=== PATIENT | female | born 1945 | race Caucasian/White ===

== ENCOUNTER → 2018-06-01 | Day surgery (SDC) | payer MEDICARE ==
[2018-05-28 11:53] VITALS: BMI 25.3
[~2018-06-01] MED LIST: Fentanyl 100 MCG/2 ML VIAL ONE; Gadobenate Dimeglumine 529 MG/1 ML (20ML VIAL) ONE; Midazolam HCl 2 mg/2 ml Vial ONE
--- NOTE | 2018-06-01 12:52 | RAD ---
LUMBAR SPINE TWO VIEWS: INDICATIONS: History of stenosis. FINDINGS: There is severe multilevel disk degenerative and facet osteoarthritic change. There is diffuse osteo penia. There is levoscoliosis at the L3-L4 level. There is slight retrolisthesis of L1-L2. There i s a wedge compression abnormality of T12. This is new from a comparison abdominal radiograph dated 0 12/28/2014. There is a left total hip replacement. There is moderate degenerative change of both SI joints. IMPRESSION: 1. Moderate to severe multilevel spondylosis of the lumbar spine. 2. Interval T12 wedge compression abnormality of undetermined chronicity. MR or bone scan may be he lpful to document acuity. 3. Slight retrolisthesis of L2 on L3. 4. Worsening degenerative levoscoliosis of the lumbar spine, centered at L3-L4. POS: [facility]
--- NOTE | 2018-06-01 15:10 | MRI ---
MRI CERVICAL SPINE WITHOUT CONTRAST: HISTORY: Pain. COMPARISON: None. TECHNIQUE: MRI cervical spine is performed without intravenous Gadolinium administration. Multisequential, mult iplanar imaging is performed. FINDINGS: Appropriate T1 marrow signal intensity of the cervical vertebrae. Vertebral body height is maintaine d. NO fracture. No significant STIR hyperintensity to suggest edema or ligamentous injury. The visualized brain parenchyma, cervicomedullary junction, cervical cord and the upper thoracic cord have a normal size and signal intensity. C2-C3: No significant disk-osteophyte complex. No significant central canal stenosis or neural fora bassam narrowing. C3-C4: Broad-based disk-osteophyte complex abuts the thecal sac. Mild central canal stenosis. Dege nerative change in the bilateral uncovertebral joints results in moderate bilateral foraminal narrowi ng. C4-C5: There is a broad-based disk-osteophyte complex. Ventral subarachnoid space is effaced. Ther e is some deformity of the cord with at least moderate central canal stenosis. No T2 hyperintensity of the cord. Degenerative change of bilateral uncovertebral joints and left facet hypertrophy are pr esent. Moderate bilateral foraminal narrowing. C5-C6: Broad-based disk-osteophyte complex abuts the thecal sac. There is a right paracentral compo nent. The ventral CSF signal intensity is effaced. Moderate central canal stenosis. No T2 hyperint ensity of the cord. There appears to be at least moderate to severe right and moderate left foramina l narrowing. C6-C7: Broad-based disk-osteophyte complex abuts the thecal sac. Mild central canal stenosis. Righ t neural foramen is patent. Mild left foraminal narrowing. C7-T1: No significant central canal stenosis or foraminal narrowing. IMPRESSION: Degenerative change of the cervical spine as above. POS: [facility]
--- NOTE | 2018-06-01 15:19 | MRI ---
MRI OF THE RIGHT SHOULDER WITHOUT CONTRAST: INDICATION: Right shoulder pain. FINDINGS: There is moderate fluid in the subacromial subdeltoid bursa. There is moderate tendinosis of the sup raspinatus and infraspinatus. There is prominent degenerative subchondral cyst-like abnormality invo lving the superior humeral head and lateral acromial process. There is moderate to severe glenohumer al osteoarthrosis with degenerative fraying of the glenoid labrum. There is mild to moderate AC join t osteoarthrosis. No muscular atrophy is evident. There is a partial thickness split tear of the lo ng head of the biceps tendon. The intraarticular course of the biceps tendon is not well seen and ma y be completely disrupted. The tendon is demonstrated at the level of the bicipital tunnel on image 7 of series 2. IMPRESSION: 1. Moderate to severe glenohumeral osteoarthrosis. 2. Nonvisualization of the intraarticular course of the long head of the biceps tendon suspicious fo r complete long head biceps tendon disruption with retraction to the level of the bicipital groove. There is a partial thickness split tear seen involving the proximal aspect of the visualized long hea d of the biceps tendon. 3. Moderate tendinosis of the supraspinatus and infraspinatus. 4. Moderate fluid in the subacromial, subdeltoid bursa may reflect a bursitis. 5. There is degenerative subchondral cyst-like abnormalities along the superior humeral head and acr omial spine reflect sequelae of mechanical impingement. POS: [facility]
--- NOTE | 2018-06-01 15:22 | MRI ---
MRI OF THE LEFT SHOULDER WITHOUT CONTRAST: INDICATION: Left shoulder pain. FINDINGS: There is severe osteoarthrosis involving the glenohumeral joint with prominent degenerative fraying o f the glenoid labrum. There is nonvisualization of the intraarticular biceps tendon consistent with complete disruption and distal retraction. There is moderate tendinosis of the supraspinatus and inf raspinatus. There is moderate tendinosis of the subscapularis. There is mild fluid in the subacromi al subdeltoid bursa. There are some degenerative subchondral cyst-like abnormalities involving the g reater tuberosity as well as the lateral aspect of the acromion which can be seen with mechanical imp ingement. There is no muscular atrophy. There is a suspected intraarticular body within the axillar y recess measuring 9 mm in size. There is moderate AC joint osteoarthrosis. IMPRESSION: 1. Severe osteoarthrosis of the left glenohumeral joint with intraarticular body. 2. Prominent tendinosis of the supraspinatus and infraspinatus with moderate tendinosis of the scapu janine. 3. Complete disruption of the long head of the biceps tendon with distal retraction. 4. Subchondral cyst-like abnormalities involving the lateral acromion and superior humeral head may reflect sequelae of impingement. 5. Moderate acromioclavicular joint osteoarthrosis. POS: [facility]
--- NOTE | 2018-06-01 16:55 | MRI ---
LUMBAR SPINE MRI WITH AND WITHOUT CONTRAST: 06/01/18 COMPARISON: 05/10/12 HISTORY: Lumbar spinal stenosis. TECHNIQUE: MRI of the lumbar spine is performed with and without intravenous gadolinium administration. Multiseq uential, multiplanar imaging is performed. FINDINGS: There is heterogeneous marrow signal intensity involving the T11 and T12 vertebral bodies. There is a ssociated edema suggesting type I/II Modic changes at the inferior end plate of T11. There appears to be a compression fracture at T12 with associated edema. The postcontrast images demonstrate associat ed enhancement. There is retropulsion of T12 secondary to fracture. There is intrinsic T1 and T2 rosalie ow signal hypointensity involving the L3 and L4 level without associated edema suggesting type II Mod ic change. There is appropriate signal intensity in the visualized psoas muscles and solid organs. Conus medulla ris terminates at the L1 level. In the right hemipelvis, there is an incompletely evaluated T2 hyperi ntense lesion. Postcontrast images do not demonstrate any abnormal enhancement within the thecal sac including the c auda equina and conus medullaris. There appears to be prominence of the intra and extrahepatic biliary system, incompletely evaluated. T11-T12: No significant central canal stenosis. T12 vertebral body: Moderate central canal stenosis due to retropulsion. T12-L1: No high grade central canal stenosis. L1-L2: No high grade central canal stenosis. Right neural foramen is patent. Moderate left foraminal narrowing. L2-L3: Moderate loss of disc space height. Nevertheless, no significant central canal stenosis. Neura l foramina are patent. Postsurgical changes are noted in the posterior elements. No significant abnor mal enhancement. L3-L4: Moderate to severe loss of disc space height. There is intrinsic fluid signal intensity in the disc space. No associated end plate irregularity. No significant enhancement. Fluid is nonspecific. Posterior decompression changes are noted. No significant central canal stenosis. Moderate to severe right and mild left neural foraminal narrowing. There is no enhancement of the disc space. L4-L5: Essential near complete fusion of the disc space. Posterior decompression changes are noted. N o significant central canal stenosis. Moderate right and mild left foraminal narrowing. L5-S1: Small amount of fluid signal intensity in the disc space. No end plate irregularity. No signif icant central canal stenosis. Mild to moderate bilateral foraminal narrowing. IMPRESSION: 1. Postsurgical changes of lumbar spine as above. Varying degrees of central canal stenosis and foraminal narrowing as above. 2. Fluid signal intensity in the L3-L4 and L5-S1 disc space is nonspecific. No associated enhanc ement. 3. Compression fracture at T12 with retropulsion. There is mild to moderate loss of vertebral baylee dy height. Compression fracture is new when compared to the previous exam. 4. Prominent intra and extrahepatic biliary system, incompletely evaluated. Consider MRCP or ERCP. Code T POS: [facility]
== END ==
LOC: SDC/OP 10:51 → EDSTATUS 12:00
PROVIDERS: ATTEND Neurological Surgery
DX: M48.061 Spinal stenosis, lumbar region without neurogenic claudication (principal); M48.02 Spinal stenosis, cervical region; M54.2 Cervicalgia; M19.011 Primary osteoarthritis, right shoulder; M19.012 Primary osteoarthritis, left shoulder; F31.9 Bipolar disorder, unspecified; G89.29 Other chronic pain; M54.5 Low back pain; M25.552 Pain in left hip; Z87.891 Personal history of nicotine dependence; Z86.73 Personal history of transient ischemic attack (TIA), and cerebral infarction without residual deficits; Z98.1 Arthrodesis status; Z79.891 Long term (current) use of opiate analgesic; Z79.899 Other long term (current) drug therapy
CPT/HCPCS: 72100; 72141; 72158; 82565; A9579; J2250; J3010

== ENCOUNTER 2022-02-04 12:52 | Outpatient (CLI) | payer MEDICARE | END 2022-02-04 12:53 | disposition home or self-care (01) | LOC: BICMAMMO 12:52 | PROVIDERS: ATTEND Internal Medicine | DX: N64.4 Mastodynia (principal); N63.21 Unspecified lump in the left breast, upper outer quadrant | CPT/HCPCS: 76642; 77066; G0279 ==

== ENCOUNTER 2022-02-26 08:21 | Emergency (ER) | payer MEDICARE ==
[2022-02-26] MEDS ORDERED: Fentanyl 100 MCG/2 ML VIAL ONE ×2 (09:00→11:33)
[2022-02-26 09:09] LABS: #Lymphocytes 1.2 thou/uL (1.20-3.40); #Monocytes 0.1 thou/uL (0.11-0.59); #Neutrophils 5.3 thou/uL (1.40-6.50); %Basophils 0.1 % (0.0-1.0); %Eosinophils 0.7 % (0.0-10.0); %Lymphocytes 17.5 % (21.0-51.0); %Monocytes 1.7 % (0.0-10.0); Hemoglobin 12.4 g/dL (12.0-16.0); Mean Corpuscular HGB CONC 30.7 g/dL (32.0-36.0); Mean Corpuscular Volume 94.3 fL (78.0-98.0); Mean Platelet Volume 6.7 fL (7.4-10.4); Platelet Count 276 thou/uL (130-400); RBC Distribution Width 14.4 % (11.5-14.5); Red Blood Cell (RBC) Count 4.28 mill/uL (4.20-5.40); White Blood Cell (WBC) Count 6.6 thou/uL (4.8-10.8)
[2022-02-26 09:28] LABS: ALT (SGPT) 17 U/L (8-55); AST (SGOT) 22 U/L (5-34); Albumin 4.4 g/dL (3.4-4.8); Alkaline Phosphatase 96 U/L (40-110); Anion Gap 12 mmol/L (10-20); BUN (Urea Nitrogen) 8 mg/dL (9.8-20.1); Bilirubin, Total 1.2 mg/dL (0.2-1.2); Calc. Creatinine Clearance 0 mL/min (70-130); Calcium 9.7 mg/dL (7.8-10.44); Carbon Dioxide 31 mmol/L (23-31); Chloride 98 mmol/L (98-107); Globulin 3.6 g/dL (2.4-3.5); Glucose 97 mg/dL (83-110); Potassium 3.9 mmol/L (3.5-5.1); Sodium 137 mmol/L (136-145)
[2022-02-26 11:09] LABS: Bacteria/HPF None Seen HPF (None Seen); Bilirubin Negative (Negative); Blood, Urine 3+ (Negative); Clarity Clear (Clear); Glucose, Urine (Dipstick) Normal (Negative); Ketone, Urine Negative (Negative); Leukocyte Negative Leu/uL (Negative); Nitrite Negative (Negative); Protein, Urine (Dipstick) Negative (Neg-Trace); Specific Gravity, Urine 1.015 (1.002-1.036); Squamous Epithelial 0-3 HPF (0-3); Urobilinogen Normal mg/dL (Less than 2); WBC/HPF 0-3 HPF (0-3)
== END 2022-02-26 12:01 | disposition home or self-care (01) ==
LOC: ERS 08:21
DX: S06.9X9A Unspecified intracranial injury with loss of consciousness of unspecified duration, initial encounter (principal); M25.561 Pain in right knee; M25.562 Pain in left knee; R31.9 Hematuria, unspecified; W19.XXXA Unspecified fall, initial encounter; Y93.01 Activity, walking, marching and hiking; Z85.3 Personal history of malignant neoplasm of breast
CPT/HCPCS: 36415; 70450; 72125; 72170; 80053; 81003; 81015; 85025; 93005; 96374; 96376; J3010

== ENCOUNTER 2022-02-26 21:40 | Inpatient (IN) | payer MEDICARE ==
[2022-02-27] MEDS ORDERED: Morphine 4 MG/ML VIAL ONE (01:02)
[2022-02-27] MEDS ORDERED: Ondansetron ODT 4 MG TAB PO PRN (03:05)
[2022-02-27] MEDS ORDERED: Morphine 4 MG/ML VIAL SLOW IVP PRN ×2 (03:05→07:32)
[2022-02-27] MEDS ORDERED: Dextrose 5% in Water 1,000 ML IV PRN (03:05)
[2022-02-27] MEDS ORDERED: Morphine 2 MG/ML VIAL SLOW IVP PRN (03:05)
[2022-02-27] MEDS ORDERED: hydrALAZINE 20 MG/ML VIAL SLOW IVP PRN (03:05)
[2022-02-27] MEDS ORDERED: Ondansetron PF 4 MG/2 ML Vial IVP PRN (03:05)
[2022-02-27] MEDS ORDERED: Dextrose 50% Abboject 50 ML SYRINGE SLOW IVP PRN (03:05)
[2022-02-27] MEDS ORDERED: traMADol HCl 50 MG TAB PO PRN ×3 (03:09→07:32)
[2022-02-27] MEDS ORDERED: Sodium Chloride 0.9% 1,000 ML IV SCH (03:15)
[2022-02-27] MEDS ORDERED: HYDROcodone/Acetaminophen 5/325 mg Tablet ONE (03:25)
[2022-02-27 04:02] LABS: #Eosinphils 0.1 thou/uL (0.0-0.7); #Lymphocytes 1.2 thou/uL (1.20-3.40); #Monocytes 0.2 thou/uL (0.11-0.59); #Neutrophils 6.7 thou/uL (1.40-6.50); %Basophils 0.2 % (0.0-1.0); %Lymphocytes 14.2 % (21.0-51.0); %Monocytes 2.7 % (0.0-10.0); %Neutrophils 81.8 % (42.0-75.0); Hemoglobin 12.5 g/dL (12.0-16.0); Mean Corpuscular HGB CONC 32.9 g/dL (32.0-36.0); Mean Corpuscular Hemoglobin 29.5 pg (27.0-31.0); Mean Corpuscular Volume 89.5 fL (78.0-98.0); Mean Platelet Volume 6.9 fL (7.4-10.4); Platelet Count 250 thou/uL (130-400); RBC Distribution Width 14.7 % (11.5-14.5); Red Blood Cell (RBC) Count 4.24 mill/uL (4.20-5.40); White Blood Cell (WBC) Count 8.2 thou/uL (4.8-10.8)
[2022-02-27 04:16] LABS: Anion Gap 16 mmol/L (10-20); BUN (Urea Nitrogen) 12 mg/dL (9.8-20.1); Calc. Creatinine Clearance 0 mL/min (70-130); Calcium 9.5 mg/dL (7.8-10.44); Carbon Dioxide 26 mmol/L (23-31); Chloride 96 mmol/L (98-107); Glucose 105 mg/dL (83-110); Magnesium 1.9 mg/dL (1.6-2.6); Potassium 3.6 mmol/L (3.5-5.1); Sodium 134 mmol/L (136-145)
[2022-02-27] MEDS: Ketorolac Tromethamine 30 MG/ML VIAL IVP SCH ×5 (05:07→21:47)
[2022-02-27] MEDS: Acetaminophen 500 MG TAB PO SCH ×5 (05:07→21:47)
[2022-02-27 05:38] VITALS: BMI 27.1
[2022-02-27] MEDS ORDERED: ceFAZolin 2 GM/Dextrose 50 ML 2 GM in Premix Bag 1 BAG IVPB SCH (07:45)
[2022-02-27] MEDS ORDERED: CEFAZOLIN 2 GM in Sodium Chloride 0.9% 100 ML IVPB SCH (08:00)
[2022-02-27 08:27] LABS: SARS-CoV-2 NAA Rapid Test Not Detected (NotDetected)
[2022-02-27] MEDS: Citalopram 20 MG TAB PO SCH (08:59)
[2022-02-27] MEDS: Senokot S 8.6-50 MG TAB PO SCH ×2 (09:00→20:30)
[2022-02-27] MEDS: Polyethylene Glycol 3350 17 GM Packet PO SCH (09:00)
[2022-02-27] MEDS: Famotidine/PF 20 mg/2ml Vial SLOW IVP SCH ×2 (09:00→20:30)
[2022-02-27] MEDS ORDERED: fentaNYL Citrate/PF 100 MCG/2 ML SYRINGE ONE (15:00)
[2022-02-27] MEDS ORDERED: CEFAZOLIN 2 GM VIAL ONE (15:29)
[2022-02-27] MEDS ORDERED: Sodium Chloride 0.9% 100 ML ONE (15:29)
[2022-02-27] MEDS ORDERED: Lidocaine 1% PF 5 ML VIAL ONE (15:41)
[2022-02-27] MEDS ORDERED: Ondansetron PF 4 MG/2 ML Vial ONE (15:41)
[2022-02-27] MEDS ORDERED: PROPOFOL 200 MG/20 ML VIAL ONE (15:41)
[2022-02-27] MEDS ORDERED: PHENYLEPHRINE-NS 100 MCG/ML 10 ML SYRINGE ONE ×2 (15:41→16:55)
[2022-02-27] MEDS ORDERED: Dexamethasone 20 MG/5 ML VIAL ONE (15:41)
[2022-02-27] MEDS ORDERED: Rocuronium Bromide 10 MG/ML (10ML VIAL) ONE (15:41)
[2022-02-27] MEDS ORDERED: SUGAMMADEX SODIUM 200 MG/2 ML VIAL ONE (17:11)
[2022-02-27] MEDS ORDERED: Promethazine HCl 25 MG/ML VIAL IVPB PRN (17:56)
[2022-02-27] MEDS ORDERED: Promethazine HCl 25 MG/ML VIAL IM PRN (17:56)
[2022-02-27] MEDS ORDERED: Ondansetron HCl/PF 4 MG/2 ML Vial IVP PRN (17:56)
[2022-02-27] MEDS ORDERED: Meperidine HCl/PF 25 MG/ML VIAL SLOW IVP PRN (17:56)
[2022-02-27] MEDS ORDERED: Fentanyl 100 MCG/2 ML VIAL ONE (18:29)
[2022-02-27] MEDS: CEFAZOLIN 2 GM in Sodium Chloride 0.9% 100 ML IVPB SCH ×2 (19:25→23:43)
[2022-02-27] MEDS ORDERED: Acetaminophen/Codeine 30-300mg Tablet PO PRN (19:45)
[2022-02-27] MEDS: Donepezil HCl 5 MG TAB PO SCH ×2 (20:33→21:47)
[2022-02-28] MEDS: Acetaminophen 500 MG TAB PO SCH ×4 (04:32→23:25)
[2022-02-28] MEDS: Ketorolac Tromethamine 30 MG/ML VIAL IVP SCH ×4 (04:42→20:26)
[2022-02-28 08:04] LABS: #Eosinphils 0.1 thou/uL (0.0-0.7); #Lymphocytes 1.1 thou/uL (1.20-3.40); #Monocytes 0.4 thou/uL (0.11-0.59); #Neutrophils 7.4 thou/uL (1.40-6.50); %Eosinophils 0.6 % (0.0-10.0); %Lymphocytes 11.9 % (21.0-51.0); %Monocytes 4.7 % (0.0-10.0); %Neutrophils 82.8 % (42.0-75.0); Mean Corpuscular HGB CONC 32.5 g/dL (32.0-36.0); Mean Corpuscular Hemoglobin 30.3 pg (27.0-31.0); Mean Corpuscular Volume 93.1 fL (78.0-98.0); Mean Platelet Volume 7.2 fL (7.4-10.4); Platelet Count 211 thou/uL (130-400); RBC Distribution Width 14.4 % (11.5-14.5); Red Blood Cell (RBC) Count 3.29 mill/uL (4.20-5.40); White Blood Cell (WBC) Count 8.9 thou/uL (4.8-10.8)
[2022-02-28 08:26] LABS: Anion Gap 16 mmol/L (10-20); BUN (Urea Nitrogen) 11 mg/dL (9.8-20.1); Calc. Creatinine Clearance 85 mL/min (70-130); Calcium 8.5 mg/dL (7.8-10.44); Carbon Dioxide 24 mmol/L (23-31); Chloride 98 mmol/L (98-107); Glucose 90 mg/dL (83-110); Magnesium 1.7 mg/dL (1.6-2.6); Potassium 3.9 mmol/L (3.5-5.1); Sodium 134 mmol/L (136-145)
[2022-02-28 08:29] LABS: Phosphorus 3.1 mg/dL (2.3-4.7)
[2022-02-28] MEDS ORDERED: Ziprasidone 20 MG VIAL IM SCH ×2 (08:45→09:45)
[2022-02-28] MEDS ORDERED: Non-Formulary Item 1 EACH (Gabapentin [Gabapentin] 600 MG Tablet) PO SCH (09:00)
[2022-02-28] MEDS ORDERED: Magnesium 2 GM/50 ML(in water) 2 GM in Premix Bag 1 BAG IVPB SCH (09:00)
[2022-02-28] MEDS: Gabapentin 400 MG CAP PO SCH ×3 (09:08→20:25)
[2022-02-28] MEDS: Aspirin 81 mg Enteric Coated Tablet PO SCH ×2 (09:09→20:26)
[2022-02-28] MEDS: Citalopram 20 MG TAB PO SCH (09:09)
[2022-02-28] MEDS: Cyclobenzaprine 10 MG TAB PO PRN (09:09)
[2022-02-28] MEDS: Senokot S 8.6-50 MG TAB PO SCH ×2 (09:09→20:26)
[2022-02-28] MEDS: Famotidine 20 MG TAB PO SCH ×2 (09:09→20:26)
[2022-02-28] MEDS: Polyethylene Glycol 3350 17 GM Packet PO SCH (09:09)
[2022-02-28] MEDS ORDERED: Haloperidol Lactate 5 MG/ML VIAL IM SCH (11:15)
[2022-02-28] MEDS ORDERED: Sodium Chloride 0.9% 1,000 ML IV SCH (17:15)
[2022-02-28] MEDS: Donepezil HCl 5 MG TAB PO SCH (20:25)
[2022-02-28] MEDS: Atorvastatin Calcium 40 MG TAB PO SCH (20:26)
[2022-02-28] MEDS: Melatonin 3 MG TAB PO SCH (20:46)
[2022-03-01] MEDS: Ketorolac Tromethamine 30 MG/ML VIAL IVP SCH (03:28)
[2022-03-01 06:17] LABS: #Eosinphils 0.3 thou/uL (0.0-0.7); #Lymphocytes 1.3 thou/uL (1.20-3.40); #Monocytes 0.5 thou/uL (0.11-0.59); #Neutrophils 4.1 thou/uL (1.40-6.50); %Basophils 0.3 % (0.0-1.0); %Eosinophils 5.3 % (0.0-10.0); %Lymphocytes 20.1 % (21.0-51.0); %Neutrophils 66.3 % (42.0-75.0); Hemoglobin 8.1 g/dL (12.0-16.0); Mean Corpuscular HGB CONC 31.5 g/dL (32.0-36.0); Mean Corpuscular Hemoglobin 29.7 pg (27.0-31.0); Mean Corpuscular Volume 94.3 fL (78.0-98.0); Mean Platelet Volume 7.1 fL (7.4-10.4); Platelet Count 171 thou/uL (130-400); RBC Distribution Width 14.3 % (11.5-14.5); Red Blood Cell (RBC) Count 2.74 mill/uL (4.20-5.40); White Blood Cell (WBC) Count 6.2 thou/uL (4.8-10.8)
[2022-03-01 06:38] LABS: Anion Gap 11 mmol/L (10-20); BUN (Urea Nitrogen) 15 mg/dL (9.8-20.1); Calc. Creatinine Clearance 84 mL/min (70-130); Carbon Dioxide 27 mmol/L (23-31); Chloride 103 mmol/L (98-107); Glucose 80 mg/dL (83-110); Magnesium 2.2 mg/dL (1.6-2.6); Potassium 3.7 mmol/L (3.5-5.1); Sodium 137 mmol/L (136-145)
[2022-03-01] MEDS: Acetaminophen 500 MG TAB PO SCH ×3 (06:40→18:45)
[2022-03-01] MEDS ORDERED: PHOS-NAK 1 PKT PACK PO SCH (07:30)
[2022-03-01] MEDS: Ibuprofen 200 MG TAB PO PRN (09:19)
[2022-03-01] MEDS: Citalopram 20 MG TAB PO SCH (09:20)
[2022-03-01] MEDS: Gabapentin 400 MG CAP PO SCH ×3 (09:20→20:24)
[2022-03-01] MEDS: Senokot S 8.6-50 MG TAB PO SCH ×2 (10:43→20:32)
[2022-03-01] MEDS: Aspirin 81 mg Enteric Coated Tablet PO SCH ×2 (10:44→20:31)
[2022-03-01] MEDS: Famotidine 20 MG TAB PO SCH ×2 (10:44→23:03)
[2022-03-01] MEDS: Polyethylene Glycol 3350 17 GM Packet PO SCH (10:44)
[2022-03-01] MEDS ORDERED: Acetaminophen/Codeine 30-300mg Tablet PO PRN (16:05)
[2022-03-01] MEDS: Cyclobenzaprine 10 MG TAB PO PRN (16:08)
[2022-03-01] MEDS: Acetaminophen/Codeine 30-300mg Tablet PO PRN (17:38)
[2022-03-01] MEDS: Donepezil HCl 5 MG TAB PO SCH (20:26)
[2022-03-01] MEDS: Melatonin 3 MG TAB PO SCH (20:28)
[2022-03-01] MEDS ORDERED: Hydrocortisone Sod Succ/PF 100 mg/2 ml Vial IVP SCH (20:30)
[2022-03-01] MEDS: Atorvastatin Calcium 40 MG TAB PO SCH (20:31)
[2022-03-01 20:53] LABS: #Eosinphils 0.3 thou/uL (0.0-0.7); #Lymphocytes 1.8 thou/uL (1.20-3.40); #Monocytes 0.5 thou/uL (0.11-0.59); #Neutrophils 4.2 thou/uL (1.40-6.50); %Basophils 0.1 % (0.0-1.0); %Eosinophils 4.6 % (0.0-10.0); %Lymphocytes 25.8 % (21.0-51.0); %Monocytes 7.1 % (0.0-10.0); %Neutrophils 62.4 % (42.0-75.0); Hemoglobin 7.8 g/dL (12.0-16.0); Mean Corpuscular HGB CONC 32.8 g/dL (32.0-36.0); Mean Corpuscular Hemoglobin 30.2 pg (27.0-31.0); Mean Corpuscular Volume 92.1 fL (78.0-98.0); Mean Platelet Volume 6.9 fL (7.4-10.4); Platelet Count 215 thou/uL (130-400); RBC Distribution Width 14.5 % (11.5-14.5); Red Blood Cell (RBC) Count 2.57 mill/uL (4.20-5.40); White Blood Cell (WBC) Count 6.8 thou/uL (4.8-10.8)
[2022-03-02] MEDS: Acetaminophen 500 MG TAB PO SCH ×4 (01:14→18:37)
[2022-03-02] MEDS: Hydrocortisone Sod Succ/PF 100 mg/2 ml Vial IVP SCH ×3 (05:24→22:00)
[2022-03-02 09:16] LABS: #Lymphocytes 0.9 thou/uL (1.20-3.40); #Monocytes 0.2 thou/uL (0.11-0.59); %Eosinophils 0.2 % (0.0-10.0); %Lymphocytes 13.1 % (21.0-51.0); %Monocytes 2.6 % (0.0-10.0); %Neutrophils 84.1 % (42.0-75.0); Hemoglobin 8.3 g/dL (12.0-16.0); Mean Platelet Volume 7.2 fL (7.4-10.4); Platelet Count 220 thou/uL (130-400); RBC Distribution Width 14.5 % (11.5-14.5); Red Blood Cell (RBC) Count 2.76 mill/uL (4.20-5.40); White Blood Cell (WBC) Count 7.1 thou/uL (4.8-10.8)
[2022-03-02 09:27] LABS: Anion Gap 17 mmol/L (10-20); BUN (Urea Nitrogen) 10 mg/dL (9.8-20.1); Calc. Creatinine Clearance 91 mL/min (70-130); Calcium 8.5 mg/dL (7.8-10.44); Carbon Dioxide 22 mmol/L (23-31); Chloride 104 mmol/L (98-107); Glucose 107 mg/dL (83-110); Phosphorus 3.1 mg/dL (2.3-4.7); Potassium 4.1 mmol/L (3.5-5.1); Sodium 139 mmol/L (136-145)
[2022-03-02] MEDS: Aspirin 81 mg Enteric Coated Tablet PO SCH ×2 (10:24→20:31)
[2022-03-02] MEDS: Polyethylene Glycol 3350 17 GM Packet PO SCH (10:24)
[2022-03-02] MEDS: Citalopram 20 MG TAB PO SCH (10:24)
[2022-03-02] MEDS: Famotidine 20 MG TAB PO SCH ×2 (10:24→20:31)
[2022-03-02] MEDS: Gabapentin 400 MG CAP PO SCH ×3 (10:24→20:30)
[2022-03-02] MEDS: Ibuprofen 200 MG TAB PO PRN (10:24)
[2022-03-02] MEDS: Senokot S 8.6-50 MG TAB PO SCH ×2 (10:25→20:31)
[2022-03-02] MEDS: Acetaminophen/Codeine 30-300mg Tablet PO PRN ×2 (12:10→18:35)
[2022-03-02] MEDS: Melatonin 3 MG TAB PO SCH (20:30)
[2022-03-02] MEDS: Atorvastatin Calcium 40 MG TAB PO SCH (20:31)
[2022-03-02] MEDS: Donepezil HCl 5 MG TAB PO SCH (20:31)
[2022-03-02] MEDS ORDERED: Haloperidol Lactate 5 MG/ML VIAL IM SCH (22:30)
[2022-03-03] MEDS: Acetaminophen 500 MG TAB PO SCH ×2 (00:17→06:00)
[2022-03-03] MEDS: Hydrocortisone Sod Succ/PF 100 mg/2 ml Vial IVP SCH (06:00)
[2022-03-03] MEDS: Citalopram 20 MG TAB PO SCH (09:30)
[2022-03-03] MEDS: Gabapentin 400 MG CAP PO SCH ×3 (09:30→22:20)
[2022-03-03] MEDS: Aspirin 81 mg Enteric Coated Tablet PO SCH ×2 (09:30→22:18)
[2022-03-03] MEDS: Famotidine 20 MG TAB PO SCH ×2 (09:31→22:19)
[2022-03-03] MEDS: Senokot S 8.6-50 MG TAB PO SCH ×2 (09:31→22:18)
[2022-03-03] MEDS: Polyethylene Glycol 3350 17 GM Packet PO SCH (09:32)
[2022-03-03] MEDS: Acetaminophen 325 MG TAB PO SCH ×2 (11:57→18:09)
[2022-03-03] MEDS: Donepezil HCl 5 MG TAB PO SCH (22:19)
[2022-03-03] MEDS: Melatonin 3 MG TAB PO SCH (22:19)
[2022-03-03] MEDS: Atorvastatin Calcium 40 MG TAB PO SCH (22:20)
[2022-03-03] MEDS: Acetaminophen/Codeine 30-300mg Tablet PO PRN (22:21)
[2022-03-04] MEDS: Acetaminophen/Codeine 30-300mg Tablet PO PRN ×3 (04:04→20:36)
[2022-03-04] MEDS: Acetaminophen 325 MG TAB PO SCH ×4 (06:30→18:00)
[2022-03-04] MEDS: Gabapentin 400 MG CAP PO SCH ×3 (10:42→20:35)
[2022-03-04] MEDS: Aspirin 81 mg Enteric Coated Tablet PO SCH ×2 (10:42→20:34)
[2022-03-04] MEDS: Senokot S 8.6-50 MG TAB PO SCH ×2 (10:42→20:35)
[2022-03-04] MEDS: Citalopram 20 MG TAB PO SCH (10:43)
[2022-03-04] MEDS: Polyethylene Glycol 3350 17 GM Packet PO SCH (10:46)
[2022-03-04] MEDS: Famotidine 20 MG TAB PO SCH ×2 (10:46→20:35)
[2022-03-04] MEDS: Melatonin 3 MG TAB PO SCH (20:34)
[2022-03-04] MEDS: Donepezil HCl 5 MG TAB PO SCH (20:35)
[2022-03-04] MEDS: Atorvastatin Calcium 40 MG TAB PO SCH (20:35)
[2022-03-05] MEDS: Acetaminophen 325 MG TAB PO SCH ×4 (06:15→17:10)
[2022-03-05] MEDS: Gabapentin 400 MG CAP PO SCH ×4 (09:55→20:33)
[2022-03-05] MEDS: Aspirin 81 mg Enteric Coated Tablet PO SCH ×2 (09:55→20:29)
[2022-03-05] MEDS: Polyethylene Glycol 3350 17 GM Packet PO SCH (09:55)
[2022-03-05] MEDS: Ibuprofen 200 MG TAB PO PRN (09:56)
[2022-03-05] MEDS: Famotidine 20 MG TAB PO SCH ×3 (09:56→20:33)
[2022-03-05] MEDS: Senokot S 8.6-50 MG TAB PO SCH ×3 (09:56→20:33)
[2022-03-05] MEDS: Citalopram 20 MG TAB PO SCH (09:56)
[2022-03-05] MEDS: Acetaminophen/Codeine 30-300mg Tablet PO PRN (20:29)
[2022-03-05] MEDS: Melatonin 3 MG TAB PO SCH (20:29)
[2022-03-05] MEDS: Atorvastatin Calcium 40 MG TAB PO SCH (20:29)
[2022-03-05] MEDS: Donepezil HCl 5 MG TAB PO SCH (20:29)
[2022-03-06] MEDS: Acetaminophen 325 MG TAB PO SCH ×3 (00:33→11:54)
[2022-03-06 00:48] VITALS: TEMP 97
[2022-03-06 08:11] VITALS: BP 160/87
[2022-03-06] MEDS: Senokot S 8.6-50 MG TAB PO SCH (08:33)
[2022-03-06] MEDS: Aspirin 81 mg Enteric Coated Tablet PO SCH (08:33)
[2022-03-06] MEDS: Famotidine 20 MG TAB PO SCH (08:33)
[2022-03-06] MEDS: Ibuprofen 200 MG TAB PO PRN (08:34)
[2022-03-06] MEDS: Citalopram 20 MG TAB PO SCH (08:36)
[2022-03-06] MEDS: Gabapentin 400 MG CAP PO SCH ×2 (08:36→15:26)
[2022-03-06] MEDS: Polyethylene Glycol 3350 17 GM Packet PO SCH (08:37)
== END 2022-03-06 16:35 | DRG 522 ==
LOC: ERS 21:40 → SURG A 02-27 01:05
PROVIDERS: ADMIT Surgery; ATTEND Surgery
PROC: 0SRR0J9 Replacement of Right Hip Joint, Femoral Surface with Synthetic Substitute, Cemented, Open Approach (ICD-10-PCS; principal; 2022-02-27)
DX: S72.011A Unspecified intracapsular fracture of right femur, initial encounter for closed fracture (principal); F05 Delirium due to known physiological condition; W18.30XA Fall on same level, unspecified, initial encounter; F03.90 Unspecified dementia, unspecified severity, without behavioral disturbance, psychotic disturbance, mood disturbance, and anxiety; F31.9 Bipolar disorder, unspecified; M19.90 Unspecified osteoarthritis, unspecified site; G62.9 Polyneuropathy, unspecified; D64.9 Anemia, unspecified; C50.912 Malignant neoplasm of unspecified site of left female breast; K44.9 Diaphragmatic hernia without obstruction or gangrene; Z96.642 Presence of left artificial hip joint; Z66 Do not resuscitate; Z20.822 Contact with and (suspected) exposure to COVID-19; Z98.890 Other specified postprocedural states; Z86.73 Personal history of transient ischemic attack (TIA), and cerebral infarction without residual deficits
CPT/HCPCS: 36415; 71045; 72170; 80048; 82533; 83735; 84100; 85025; 86850; 86900; 86901; 96374; C1713; C1776; J0690; J1100; J1630; J1720; J1885; J2270; J2405; J2704; J3010; J3475; J3490; J7050; P9045; U0002; U0003; U0005

== ENCOUNTER 2022-03-24 09:19 | Outpatient (CLI) | payer MEDICARE | END 2022-03-24 09:20 | disposition home or self-care (01) | LOC: BICMRI 09:19 | PROVIDERS: ATTEND Specialist | DX: C50.912 Malignant neoplasm of unspecified site of left female breast (principal) | CPT/HCPCS: A9577; C8908 ==

== ENCOUNTER 2022-06-05 11:51 | Inpatient (IN) | payer MEDICARE, MEDICAID ==
[2022-06-05 12:39] LABS: #Lymphocytes 0.7 thou/uL (1.20-3.40); #Monocytes 0.7 thou/uL (0.11-0.59); #Neutrophils 8.1 thou/uL (1.40-6.50); %Lymphocytes 7.7 % (21.0-51.0); %Monocytes 7.4 % (0.0-10.0); %Neutrophils 84.9 % (42.0-75.0); Hemoglobin 9.1 g/dL (12.0-16.0); Mean Corpuscular HGB CONC 31.2 g/dL (32.0-36.0); Mean Corpuscular Hemoglobin 26.3 pg (27.0-31.0); Mean Corpuscular Volume 84.4 fL (78.0-98.0); Mean Platelet Volume 6.6 fL (7.4-10.4); Platelet Count 504 thou/uL (130-400); RBC Distribution Width 15.8 % (11.5-14.5); Red Blood Cell (RBC) Count 3.45 mill/uL (4.20-5.40); White Blood Cell (WBC) Count 9.5 thou/uL (4.8-10.8)
[2022-06-05] MEDS ORDERED: Cefepime 2 GM VIAL ONE (12:40)
[2022-06-05 12:55] LABS: INR-International Normal Ratio 1.2; PTT 36.5 sec (22.9-36.1); Prothrombin Time 15.4 sec (12.0-14.7)
[2022-06-05 13:02] LABS: ALT (SGPT) 12 U/L (8-55); AST (SGOT) 24 U/L (5-34); Albumin 3.4 g/dL (3.4-4.8); Alkaline Phosphatase 108 U/L (40-110); Anion Gap 18 mmol/L (10-20); BUN (Urea Nitrogen) 9 mg/dL (9.8-20.1); Bilirubin, Total 1.1 mg/dL (0.2-1.2); Calc. Creatinine Clearance 0 mL/min (70-130); Calcium 9.2 mg/dL (7.8-10.44); Carbon Dioxide 23 mmol/L (23-31); Chloride 98 mmol/L (98-107); Estimated GFR 94; Globulin 3.9 g/dL (2.4-3.5); Glucose 122 mg/dL (83-110); Potassium 3.3 mmol/L (3.5-5.1); Protein, Total 7.3 g/dL (5.8-8.1); Sodium 136 mmol/L (136-145)
[2022-06-05 13:02] LABS: Bacteria/HPF 4+ HPF (None Seen); Bilirubin Negative (Negative); Blood, Urine 3+ (Negative); Clarity Turbid (Clear); Glucose, Urine (Dipstick) Normal (Negative); Ketone, Urine 10 mg/dL (Negative); Leukocyte 500 Leu/uL (Negative); Nitrite 2+ (Negative); Protein, Urine (Dipstick) 100 mg/dL (Neg-Trace); Specific Gravity, Urine 1.025 (1.002-1.036); Squamous Epithelial None Seen HPF (0-3); Urobilinogen 3 mg/dL (Less than 2); WBC/HPF Greater than 50 HPF (0-3); pH, Urine 6.5 (5.0-9.0)
[2022-06-05] MEDS ORDERED: Vancomycin 1 GM/200 ML BAG ONE (13:06)
[2022-06-05] MEDS ORDERED: Senokot S 8.6-50 MG TAB PO PRN (15:19)
[2022-06-05] MEDS ORDERED: Ondansetron PF 4 MG/2 ML Vial IVP PRN (15:19)
[2022-06-05] MEDS ORDERED: Ondansetron ODT 4 MG TAB PO PRN (15:19)
[2022-06-05] MEDS ORDERED: Acetaminophen/Codeine 30-300mg Tablet PO PRN (15:25)
[2022-06-05] MEDS ORDERED: Iopamidol-370 76% 500 ML 1 ML ONE (16:06)
[2022-06-05 16:32] LABS: Magnesium 1.6 mg/dL (1.6-2.6)
[2022-06-05] MEDS: Potassium Chloride 20 MEQ in Premix Bag 1 BAG IVPB SCH ×2 (16:41→22:36)
[2022-06-05] MEDS: Sodium Chloride 0.9% 1,000 ML IV SCH (16:41)
[2022-06-05 16:57] VITALS: BMI 23.0
[2022-06-05 17:43] LABS: SARS-CoV-2 NAA Rapid Test DETECTED (NotDetected)
[2022-06-05] MEDS: Atorvastatin Calcium 40 MG TAB PO SCH (20:45)
[2022-06-05] MEDS: Famotidine 20 MG TAB PO SCH (20:51)
[2022-06-05] MEDS: Gabapentin 400 MG CAP PO SCH (20:51)
[2022-06-05] MEDS: Aspirin 81 mg Enteric Coated Tablet PO SCH (20:52)
[2022-06-05] MEDS: Donepezil HCl 5 MG TAB PO SCH (20:52)
[2022-06-05] MEDS: Colchicine 0.6 MG TAB PO SCH (20:52)
[2022-06-05] MEDS: Enoxaparin Sodium 40 MG/0.4 ML SYRINGE SC SCH (20:53)
[2022-06-06 05:19] LABS: Hemoglobin 7.7 g/dL (12.0-16.0); Mean Corpuscular Hemoglobin 27.1 pg (27.0-31.0); Mean Corpuscular Volume 85.9 fL (78.0-98.0); Red Blood Cell (RBC) Count 2.83 mill/uL (4.20-5.40); White Blood Cell (WBC) Count 5.2 thou/uL (4.8-10.8)
[2022-06-06 05:20] LABS: #Eosinphils 0.1 thou/uL (0.0-0.7); #Lymphocytes 1.8 thou/uL (1.20-3.40); #Monocytes 0.5 thou/uL (0.11-0.59); #Neutrophils 2.8 thou/uL (1.40-6.50); %Basophils 0.9 % (0.0-1.0); %Eosinophils 1.2 % (0.0-10.0); %Lymphocytes 35.1 % (21.0-51.0); %Neutrophils 53.9 % (42.0-75.0); Mean Corpuscular HGB CONC 31.6 g/dL (32.0-36.0); Mean Platelet Volume 6.5 fL (7.4-10.4); Platelet Count 383 thou/uL (130-400); RBC Distribution Width 15.7 % (11.5-14.5)
[2022-06-06 05:27] LABS: Anion Gap 12 mmol/L (10-20); BUN (Urea Nitrogen) 7 mg/dL (9.8-20.1); Calc. Creatinine Clearance 95 mL/min (70-130); Calcium 8.4 mg/dL (7.8-10.44); Carbon Dioxide 23 mmol/L (23-31); Chloride 104 mmol/L (98-107); Estimated GFR 97; Glucose 80 mg/dL (83-110); Potassium 3.8 mmol/L (3.5-5.1); Sodium 135 mmol/L (136-145)
[2022-06-06] MEDS: Sodium Chloride 0.9% 1,000 ML IV SCH (06:53)
[2022-06-06] MEDS: Zinc Sulfate 220 MG CAP PO SCH (09:43)
[2022-06-06] MEDS: Aspirin 81 mg Enteric Coated Tablet PO SCH ×2 (09:43→20:35)
[2022-06-06] MEDS: Citalopram 20 MG TAB PO SCH (09:43)
[2022-06-06] MEDS: Gabapentin 400 MG CAP PO SCH ×3 (09:43→20:35)
[2022-06-06] MEDS: Anastrozole 1 MG TAB PO SCH (09:43)
[2022-06-06] MEDS: Ascorbic Acid 500 mg Chewable Tablet PO SCH (09:43)
[2022-06-06] MEDS: Famotidine 20 MG TAB PO SCH ×2 (09:43→20:34)
[2022-06-06] MEDS: Polyethylene Glycol 3350 17 GM Packet PO SCH (09:44)
[2022-06-06] MEDS: Colchicine 0.6 MG TAB PO SCH ×2 (09:44→20:33)
[2022-06-06] MEDS: cefTRIAXone\\ROCEPHIN 1 GM in Sodium Chloride 0.9% 100 ML IVPB SCH (12:23)
[2022-06-06 14:32] LABS: Hemoglobin 8.7 g/dL (12.0-16.0)
[2022-06-06] MEDS: Atorvastatin Calcium 40 MG TAB PO SCH (20:34)
[2022-06-06] MEDS: Enoxaparin Sodium 40 MG/0.4 ML SYRINGE SC SCH (20:35)
[2022-06-06] MEDS: Donepezil HCl 5 MG TAB PO SCH (20:38)
[2022-06-07 06:10] LABS: Hemoglobin 8.5 g/dL (12.0-16.0); Mean Corpuscular HGB CONC 30.6 g/dL (32.0-36.0); Mean Corpuscular Hemoglobin 26.3 pg (27.0-31.0); Mean Corpuscular Volume 85.8 fL (78.0-98.0); Mean Platelet Volume 6.5 fL (7.4-10.4); Platelet Count 453 thou/uL (130-400); RBC Distribution Width 15.7 % (11.5-14.5); Red Blood Cell (RBC) Count 3.21 mill/uL (4.20-5.40)
[2022-06-07] MEDS: Citalopram 20 MG TAB PO SCH (09:25)
[2022-06-07] MEDS: Zinc Sulfate 220 MG CAP PO SCH (09:25)
[2022-06-07] MEDS: Anastrozole 1 MG TAB PO SCH (09:25)
[2022-06-07] MEDS: Colchicine 0.6 MG TAB PO SCH ×2 (09:25→20:13)
[2022-06-07] MEDS: Ascorbic Acid 500 mg Chewable Tablet PO SCH (09:25)
[2022-06-07] MEDS: Aspirin 81 mg Enteric Coated Tablet PO SCH ×2 (09:25→20:12)
[2022-06-07] MEDS: Gabapentin 400 MG CAP PO SCH ×3 (09:25→20:11)
[2022-06-07] MEDS: Famotidine 20 MG TAB PO SCH ×2 (09:25→20:12)
[2022-06-07] MEDS: Polyethylene Glycol 3350 17 GM Packet PO SCH (09:26)
[2022-06-07] MEDS: cefTRIAXone\\ROCEPHIN 1 GM in Sodium Chloride 0.9% 100 ML IVPB SCH (12:45)
[2022-06-07] MEDS: Donepezil HCl 5 MG TAB PO SCH (20:12)
[2022-06-07] MEDS: Atorvastatin Calcium 40 MG TAB PO SCH (20:13)
[2022-06-07] MEDS: Enoxaparin Sodium 40 MG/0.4 ML SYRINGE SC SCH (20:13)
[2022-06-08] MEDS: Polyethylene Glycol 3350 17 GM Packet PO SCH (08:26)
[2022-06-08] MEDS: Ascorbic Acid 500 mg Chewable Tablet PO SCH (08:26)
[2022-06-08] MEDS: Gabapentin 400 MG CAP PO SCH ×3 (08:26→20:21)
[2022-06-08] MEDS: Citalopram 20 MG TAB PO SCH (08:26)
[2022-06-08] MEDS: Anastrozole 1 MG TAB PO SCH (08:26)
[2022-06-08] MEDS: Aspirin 81 mg Enteric Coated Tablet PO SCH ×2 (08:26→20:21)
[2022-06-08] MEDS: Famotidine 20 MG TAB PO SCH ×2 (08:27→20:21)
[2022-06-08] MEDS: Colchicine 0.6 MG TAB PO SCH ×2 (08:27→20:21)
[2022-06-08] MEDS: Zinc Sulfate 220 MG CAP PO SCH (08:27)
[2022-06-08] MEDS: cefTRIAXone\\ROCEPHIN 1 GM in Sodium Chloride 0.9% 100 ML IVPB SCH (12:35)
[2022-06-08] MEDS: Enoxaparin Sodium 40 MG/0.4 ML SYRINGE SC SCH (20:20)
[2022-06-08] MEDS: Atorvastatin Calcium 40 MG TAB PO SCH (20:20)
[2022-06-08] MEDS: Donepezil HCl 5 MG TAB PO SCH (20:21)
[2022-06-09 08:24] VITALS: BP 147/86; TEMP 98.6
[2022-06-09] MEDS: Polyethylene Glycol 3350 17 GM Packet PO SCH (09:40)
[2022-06-09] MEDS: Gabapentin 400 MG CAP PO SCH ×2 (09:40→14:59)
[2022-06-09] MEDS: Ascorbic Acid 500 mg Chewable Tablet PO SCH (09:40)
[2022-06-09] MEDS: Famotidine 20 MG TAB PO SCH (09:40)
[2022-06-09] MEDS: Citalopram 20 MG TAB PO SCH (09:40)
[2022-06-09] MEDS: Aspirin 81 mg Enteric Coated Tablet PO SCH (09:40)
[2022-06-09] MEDS: Anastrozole 1 MG TAB PO SCH (09:40)
[2022-06-09] MEDS: Zinc Sulfate 220 MG CAP PO SCH (09:40)
[2022-06-09] MEDS ORDERED: Cefdinir 300 MG CAP PO SCH ×2 (11:15→21:00)
== END 2022-06-09 15:37 | DRG 871 ==
LOC: ERS 11:51 → NEURO 14:23 → OBSVTOIN 06-06 13:16 → T4-B 06-06 14:41
PROVIDERS: ADMIT Hospitalist; ATTEND Hospitalist
PROC: 3E03329 Introduction of Other Anti-infective into Peripheral Vein, Percutaneous Approach (ICD-10-PCS; principal; 2022-06-06)
PROC: 8E0ZXY6 Isolation (ICD-10-PCS; 2022-06-06)
DX: A41.51 Sepsis due to Escherichia coli [E. coli] (principal); A41.4 Sepsis due to anaerobes; Z66 Do not resuscitate; G93.41 Metabolic encephalopathy; U07.1 COVID-19; N39.0 Urinary tract infection, site not specified; F03.91 Unspecified dementia, unspecified severity, with behavioral disturbance; C78.01 Secondary malignant neoplasm of right lung; F31.9 Bipolar disorder, unspecified; G62.9 Polyneuropathy, unspecified; Z96.643 Presence of artificial hip joint, bilateral; E87.6 Hypokalemia; D69.6 Thrombocytopenia, unspecified; R13.10 Dysphagia, unspecified; R22.1 Localized swelling, mass and lump, neck; C50.919 Malignant neoplasm of unspecified site of unspecified female breast; D63.8 Anemia in other chronic diseases classified elsewhere; M11.231 Other chondrocalcinosis, right wrist; C50.912 Malignant neoplasm of unspecified site of left female breast; Z86.73 Personal history of transient ischemic attack (TIA), and cerebral infarction without residual deficits; Z79.899 Other long term (current) drug therapy; Z79.82 Long term (current) use of aspirin; Z79.811 Long term (current) use of aromatase inhibitors; Z98.890 Other specified postprocedural states; Z99.3 Dependence on wheelchair; Z74.01 Bed confinement status
CPT/HCPCS: 36415; 36416; 70491; 71045; 80048; 80053; 81003; 81015; 83605; 83735; 84550; 85025; 85027; 85610; 85652; 85730; 86140; 87040; 87077; 87086; 87186; 93005; 94760; 96366; 96367; 96372; 96375; 96376; G0378; J0692; J0696; J1650; J3370; J3480; J3490; J7050; Q9967; U0002

== ENCOUNTER 2022-11-03 12:22 | Outpatient (CLI) | payer MEDICARE | END 2022-11-03 12:23 | disposition home or self-care (01) | LOC: ULT 12:22 | PROVIDERS: ATTEND Nurse Practitioner Primary Care | DX: R60.0 Localized edema (principal) ==

== ENCOUNTER 2022-11-18 05:57 | Day surgery (SDC) | payer MEDICARE, OTHER ==
[2022-11-17 10:30] VITALS: BMI 22.8
[2022-11-18] MEDS ORDERED: Acetaminophen 500 MG TAB ONE (06:24)
[2022-11-18] MEDS ORDERED: Ketorolac Tromethamine 30 MG/ML VIAL ONE (06:24)
[2022-11-18] MEDS ORDERED: Bupivacaine/Epinephrine 0.25% 30 ML VIAL ONE (06:55)
[2022-11-18] MEDS ORDERED: Sodium Chloride 0.9% 100 ML ONE (07:10)
[2022-11-18] MEDS ORDERED: CEFAZOLIN 2 GM VIAL ONE (07:10)
[2022-11-18] MEDS ORDERED: Famotidine/PF 20 mg/2ml Vial ONE (07:21)
[2022-11-18] MEDS ORDERED: fentaNYL PF 100 MCG/2 ML SYRINGE ONE (07:21)
[2022-11-18] MEDS ORDERED: PROPOFOL 0 ML ONE (07:21)
[2022-11-18 07:22] LABS: #Eosinphils 0.2 thou/uL (0.0-0.7); #Lymphocytes 2.3 thou/uL (1.20-3.40); #Monocytes 0.4 thou/uL (0.11-0.59); #Neutrophils 3.6 thou/uL (1.40-6.50); %Basophils 0.3 % (0.0-1.0); %Eosinophils 2.5 % (0.0-10.0); %Lymphocytes 35.7 % (21.0-51.0); %Monocytes 6.5 % (0.0-10.0); %Neutrophils 54.9 % (42.0-75.0); Hemoglobin 9.5 g/dL (12.0-16.0); Mean Corpuscular HGB CONC 30.6 g/dL (32.0-36.0); Mean Corpuscular Volume 81.6 fl (78.0-98.0); Mean Platelet Volume 6.8 fL (7.4-10.4); Platelet Count 495 10x3/uL (130-400); RBC Distribution Width 14.6 % (11.5-14.5); Red Blood Cell (RBC) Count 3.81 mill/uL (4.20-5.40); White Blood Cell (WBC) Count 6.5 10x3/uL (4.8-10.8)
[2022-11-18 07:35] LABS: Anion Gap 13 mmol/L (10-20); BUN (Urea Nitrogen) 18 mg/dL (9.8-20.1); Calc. Creatinine Clearance 72 mL/min (70-130); Calcium 9.5 mg/dL (7.8-10.44); Carbon Dioxide 26 mmol/L (23-31); Chloride 103 mmol/L (98-107); Estimated GFR 92; Glucose 78 mg/dL (83-110); Sodium 138 mmol/L (136-145)
[2022-11-18] MEDS ORDERED: Lidocaine 1% PF 5 ML VIAL ONE (07:40)
[2022-11-18] MEDS ORDERED: Glycopyrrolate 0.2 MG/ML 5 ML SYRINGE ONE (07:40)
[2022-11-18] MEDS ORDERED: PROPOFOL 200 MG/20 ML VIAL ONE (07:40)
[2022-11-18] MEDS ORDERED: ePHEDrine 50 MG/ML VIAL ONE (07:40)
[2022-11-18] MEDS ORDERED: Esmolol 100 MG/10 ML VIAL ONE (07:40)
[2022-11-18] MEDS ORDERED: Ondansetron PF 4 MG/2 ML Vial ONE (07:40)
[2022-11-18] MEDS ORDERED: PHENYLEPHRINE-NS 100 MCG/ML 10 ML SYRINGE ONE (07:40)
[2022-11-18] MEDS ORDERED: Fentanyl 100 MCG/2 ML VIAL ONE (09:12)
[2022-11-18] MEDS ORDERED: Promethazine HCl 25 MG/ML VIAL IM/IV PRN (10:00)
[2022-11-18] MEDS ORDERED: Ondansetron HCl/PF 4 MG/2 ML Vial IVP PRN (10:00)
== END 2022-11-18 10:05 | disposition home or self-care (01) ==
LOC: SDC 05:57
PROVIDERS: ATTEND Specialist
PROC: 0HBU0ZZ Excision of Left Breast, Open Approach (ICD-10-PCS; principal; 2022-11-18)
PROC: 0HX5XZZ Transfer Chest Skin, External Approach (ICD-10-PCS; 2022-11-18)
DX: C50.512 Malignant neoplasm of lower-outer quadrant of left female breast (principal); F03.C11 Unspecified dementia, severe, with agitation; M19.90 Unspecified osteoarthritis, unspecified site; G62.9 Polyneuropathy, unspecified; Z86.73 Personal history of transient ischemic attack (TIA), and cerebral infarction without residual deficits; Z17.0 Estrogen receptor positive status [ER+]; Z79.811 Long term (current) use of aromatase inhibitors; Z79.899 Other long term (current) drug therapy
CPT/HCPCS: 14301; 19301; 71045; 80048; 85025; 93005; C1889; 88307; 93010; J1885; J2405; J2704; J3010; J3490; S0028

== ENCOUNTER 2023-05-19 10:12 | Emergency (ER) | payer MEDICARE, OTHER ==
[2023-05-19] MEDS ORDERED: Acetaminophen 500 MG TAB ONE (11:53)
[2023-05-19] MEDS ORDERED: traMADol HCl 50 MG TAB ONE (12:15)
== END 2023-05-19 12:51 | disposition home or self-care (01) ==
LOC: ERS 10:12
DX: S00.03XA Contusion of scalp, initial encounter (principal); S10.93XA Contusion of unspecified part of neck, initial encounter; W18.30XA Fall on same level, unspecified, initial encounter
CPT/HCPCS: 70450; 72125

== ENCOUNTER 2023-07-19 11:14 | Emergency (ER) | payer MEDICARE, OTHER ==
[2023-07-19 11:45] LABS: #Eosinphils 0.1 thou/uL (0.0-0.7); #Monocytes 0.5 thou/uL (0.11-0.59); #Neutrophils 4.8 thou/uL (1.40-6.50); %Basophils 0.1 % (0.0-1.0); %Lymphocytes 22.8 % (21.0-51.0); %Monocytes 6.5 % (0.0-10.0); %Neutrophils 69.3 % (42.0-75.0); Hematocrit 33.3 % (36.0-47.0); Hemoglobin 10.7 g/dL (12.0-16.0); Mean Corpuscular HGB CONC 32.1 g/dL (32.0-36.0); Mean Corpuscular Hemoglobin 31.5 pg (27.0-31.0); Mean Corpuscular Volume 97.9 fl (78.0-98.0); Mean Platelet Volume 9.6 fL (7.4-10.4); Platelet Count 280 10x3/uL (130-400); RBC Distribution Width 13.3 % (11.5-14.5); White Blood Cell (WBC) Count 6.9 10x3/uL (4.8-10.8)
[2023-07-19 12:07] LABS: ALT (SGPT) Less than 7 U/L (8-55); AST (SGOT) 17 U/L (5-34); Alkaline Phosphatase 87 U/L (40-110); Anion Gap 16 mmol/L (10-20); BUN (Urea Nitrogen) 12 mg/dL (9.8-20.1); Bilirubin, Total 0.5 mg/dL (0.2-1.2); Calc. Creatinine Clearance 0 mL/min (70-130); Calcium 8.9 mg/dL (7.8-10.44); Carbon Dioxide 27 mmol/L (23-31); Chloride 102 mmol/L (98-107); Estimated GFR 88; Globulin 2.9 g/dL (2.4-3.5); Glucose 129 mg/dL (83-110); Lipase 13 U/L (8-78); Potassium 4.6 mmol/L (3.5-5.1); Protein, Total 6.9 g/dL (5.8-8.1); Sodium 140 mmol/L (136-145)
[2023-07-19] MEDS ORDERED: fentaNYL 50 mcg/mL 1 mL Vial ONE (12:10)
[2023-07-19 12:15] LABS: Troponin I Less than 0.010 ng/mL (< 0.028)
== END 2023-07-19 13:20 | disposition home or self-care (01) ==
LOC: ERS 11:14
DX: S42.021A Displaced fracture of shaft of right clavicle, initial encounter for closed fracture (principal); E78.5 Hyperlipidemia, unspecified; K21.9 Gastro-esophageal reflux disease without esophagitis; W18.30XA Fall on same level, unspecified, initial encounter
CPT/HCPCS: 70450; 71045; 72125; 73030; 80053; 83690; 84484; 85025; 93005; J3010; 36415; 96374